=== PATIENT | female | born 1990 | race Caucasian/White ===

== ENCOUNTER → 2017-09-09 | Outpatient (CLI) | payer OTHER ==
[~2017-09-09] MED LIST: ACET325 PO; ALBU8HFA2 INH; ALBU90I INH; ALBU90OI INH; ALBU90OI6 INH; ALBU90OI61 INH; AMOX500 PO; ARIP15 PO; ATOM40 PO; AZIT250 PO; BENZ100A PO; CEFP200 PO; CEPH500 PO; CIPDEXSU LEFTEAR; CIPR500 PO; CYCL10 PO; DICL25ER PO; DOXY100 PO; FAMO40 PO; GABA300 PO; HYDACE5 PO; HYDACE5325 PO; HYDACE7.5 PO; IBUP800 PO; METPHE20 PO; MULVITMINE PO; NAPR500 PO; OXYC10TA19 PO; PENVK500 PO; PHENA200 PO; PRENATAL CAPLE1 EACH PO; PROM25 PO; PSEU120ER PO; Prednisone20 MG PO; Pulmicort Flex90 MCG IH; RXAMOX500 PO; RXOXYACE PO; SULTRIDS PO; SUMA25 PO; SYMBYAX PO; TRAM50 PO
[2017-09-09 17:54] LABS: U Amphetamine Screen Not Detected; U Barbituate Screen Not Detected; U Benzodiazapine Screen Not Detected; U Buprenorphine Screen Not Detected; U Cannabinoids Screen Not Detected; U Cocaine Screen Not Detected; U Methadone Screen Not Detected; U Methamphetamine Screen Not Detected; U Opiates Screen Not Detected; U Oxycodone Screen Not Detected; U Phencyclidine Screen Not Detected; U Propoxyphene Screen Not Detected
== END ==
LOC: LAB SHORT 14:51 → LAB 14:51
PROVIDERS: Obstetrics & Gynecology
DX: Z34.82 Encounter for supervision of other normal pregnancy, second trimester (principal); Z3A.17 17 weeks gestation of pregnancy; R30.0 Dysuria; Z86.14 Personal history of Methicillin resistant Staphylococcus aureus infection
CPT/HCPCS: 87077; 87081; 87086; 87186

== ENCOUNTER → 2017-10-08 | Outpatient (CLI) | payer OTHER ==
[2017-10-08 19:10] LABS: U Amphetamine Screen Not Detected; U Barbituate Screen Not Detected; U Benzodiazapine Screen Not Detected; U Buprenorphine Screen Not Detected; U Cannabinoids Screen Not Detected; U Cocaine Screen Not Detected; U Methadone Screen Not Detected; U Methamphetamine Screen Not Detected; U Opiates Screen Not Detected; U Oxycodone Screen Not Detected; U Phencyclidine Screen Not Detected; U Propoxyphene Screen Not Detected
== END | disposition home or self-care (01) ==
LOC: LAB SHORT 15:02 → LAB 15:02
PROVIDERS: Obstetrics & Gynecology
DX: Z34.82 Encounter for supervision of other normal pregnancy, second trimester (principal); Z3A.21 21 weeks gestation of pregnancy; Z86.14 Personal history of Methicillin resistant Staphylococcus aureus infection
CPT/HCPCS: 87081

== ENCOUNTER → 2017-12-16 | Outpatient (CLI) | payer OTHER ==
[~2017-12-16] MED LIST changes: -ALBU90OI6 INH
[2017-12-16 17:25] LABS: U Amphetamine Screen Not Detected; U Barbituate Screen Not Detected; U Benzodiazapine Screen Not Detected; U Buprenorphine Screen Not Detected; U Cannabinoids Screen Not Detected; U Cocaine Screen Not Detected; U Methadone Screen Not Detected; U Methamphetamine Screen Not Detected; U Opiates Screen Not Detected; U Oxycodone Screen Not Detected; U Phencyclidine Screen Not Detected; U Propoxyphene Screen Not Detected
== END ==
LOC: LAB 16:41 → LAB SHORT 16:41
PROVIDERS: Obstetrics & Gynecology
DX: Z34.83 Encounter for supervision of other normal pregnancy, third trimester (principal); Z3A.31 31 weeks gestation of pregnancy

== ENCOUNTER 2018-01-28 14:25 | Observation (INO) | payer OTHER ==
[~2018-01-28] VITALS: Ht 162.6 cm; Wt 100.6 kg
[2018-01-28 19:15] LABS: U Amphetamine Screen Not Detected; U Barbituate Screen Not Detected; U Benzodiazapine Screen Not Detected; U Buprenorphine Screen Not Detected; U Cannabinoids Screen Not Detected; U Cocaine Screen Not Detected; U Methadone Screen Not Detected; U Methamphetamine Screen Not Detected; U Opiates Screen Not Detected; U Oxycodone Screen Not Detected; U Phencyclidine Screen Not Detected; U Propoxyphene Screen Not Detected
== END 2018-01-29 10:45 | disposition home or self-care (01) ==
LOC: BC 14:25 → OBS 14:25 → BC 14:29 → OBS 17:17 → BC 17:18
PROVIDERS: Obstetrics & Gynecology
DX: O36.5930 Maternal care for other known or suspected poor fetal growth, third trimester, not applicable or unspecified (principal); Z3A.34 34 weeks gestation of pregnancy; Z79.899 Other long term (current) drug therapy
CPT/HCPCS: 76815; 76819; 81003

== ENCOUNTER 2018-02-02 06:02 | Inpatient (IN) | payer OTHER ==
[~2018-02-02] VITALS: Ht 162.6 cm; Wt 100.6 kg
[2018-02-02 06:43] LABS: BASOPHILS ABSOLUTE AUTO 0.02 K/mm3 (0.00-0.23); BASOPHILS PERCENT AUTO 0 % (0-2); EOSINOPHILS ABSOLUTE AUTO 0.13 K/mm3 (0.00-0.68); EOSINOPHILS PERCENT AUTO 1 % (0-6); Hemoglobin 12.3 g/dL (11.5-16.0); IMMATURE GRAN ABSOLUTE AUTO 0.06 K/mm3 (0.00-0.10); IMMATURE GRAN PERCENT AUTO 1 % (0-1); LYMPHOCYTES ABSOLUTE AUTO 3.55 K/mm3 (0.84-5.20); LYMPHOCYTES PERCENT AUTO 32 % (21-46); MONOCYTES ABSOLUTE AUTO 0.58 K/mm3 (0.16-1.47); MONOCYTES PERCENT AUTO 5 % (4-13); Mean Corpuscular HGB 28.7 pg (26.0-34.0); Mean Corpuscular HGB Conc 34.2 g/dL (31.5-36.5); Mean Corpuscular Volume 84 fL (80-100); Mean Platelet Volume 10.2 fL (9.1-12.4); NEUTROPHILS ABSOLUTE AUTO 6.62 K/mm3 (1.96-9.15); NEUTROPHILS PERCENT AUTO 60 % (41-73); Platelet Count 236 K/mm3 (150-400); RDW Coefficient Variation 12.4 % (11.7-14.2); RDW Standard Deviation 37.1 fL (35.1-46.3); Red Blood Cell Count 4.28 M/mm3 (3.80-5.20); White Blood Cell Count 10.96 K/mm3 (4.00-11.30)
[2018-02-02 06:56] LABS: U Amphetamine Screen Not Detected; U Barbituate Screen Not Detected; U Benzodiazapine Screen Not Detected; U Buprenorphine Screen Not Detected; U Cannabinoids Screen Not Detected; U Cocaine Screen Not Detected; U Methadone Screen Not Detected; U Methamphetamine Screen Not Detected; U Opiates Screen Not Detected; U Oxycodone Screen Not Detected; U Phencyclidine Screen Not Detected; U Propoxyphene Screen Not Detected
[2018-02-02] MEDS ORDERED: ALBU90OI6 INH (08:17)
[2018-02-03 05:10] LABS: BASOPHILS ABSOLUTE AUTO 0.02 K/mm3 (0.00-0.23); BASOPHILS PERCENT AUTO 0 % (0-2); EOSINOPHILS PERCENT AUTO 1 % (0-6); Hemoglobin 10.7 g/dL (11.5-16.0); IMMATURE GRAN ABSOLUTE AUTO 0.04 K/mm3 (0.00-0.10); IMMATURE GRAN PERCENT AUTO 0 % (0-1); LYMPHOCYTES ABSOLUTE AUTO 2.79 K/mm3 (0.84-5.20); LYMPHOCYTES PERCENT AUTO 26 % (21-46); MONOCYTES ABSOLUTE AUTO 0.53 K/mm3 (0.16-1.47); MONOCYTES PERCENT AUTO 5 % (4-13); Mean Corpuscular HGB 28.8 pg (26.0-34.0); Mean Corpuscular HGB Conc 33.4 g/dL (31.5-36.5); Mean Corpuscular Volume 86 fL (80-100); Mean Platelet Volume 10.2 fL (9.1-12.4); NEUTROPHILS ABSOLUTE AUTO 7.08 K/mm3 (1.96-9.15); NEUTROPHILS PERCENT AUTO 67 % (41-73); Platelet Count 182 K/mm3 (150-400); RDW Coefficient Variation 12.2 % (11.7-14.2); RDW Standard Deviation 38.4 fL (35.1-46.3); Red Blood Cell Count 3.71 M/mm3 (3.80-5.20); White Blood Cell Count 10.56 K/mm3 (4.00-11.30)
[2018-02-03] MEDS ORDERED: IBUP800 PO (16:49)
== END 2018-02-03 18:30 | disposition home or self-care (01) | DRG 767 ==
LOC: BC 06:02
PROVIDERS: Obstetrics & Gynecology
PROC: 10E0XZZ Delivery of Products of Conception, External Approach (ICD-10-PCS; principal; 2018-02-02)
PROC: 10D17Z9 Manual Extraction of Products of Conception, Retained, Via Natural or Artificial Opening (ICD-10-PCS; 2018-02-02)
PROC: 3E0S3BZ Introduction of Anesthetic Agent into Epidural Space, Percutaneous Approach (ICD-10-PCS; 2018-02-02)
PROC: 10907ZC Drainage of Amniotic Fluid, Therapeutic from Products of Conception, Via Natural or Artificial Opening (ICD-10-PCS; 2018-02-02)
DX: O36.5930 Maternal care for other known or suspected poor fetal growth, third trimester, not applicable or unspecified (principal); O98.42 Viral hepatitis complicating childbirth; Z37.0 Single live birth; O99.52 Diseases of the respiratory system complicating childbirth; J45.909 Unspecified asthma, uncomplicated; K21.9 Gastro-esophageal reflux disease without esophagitis; O99.62 Diseases of the digestive system complicating childbirth; F90.9 Attention-deficit hyperactivity disorder, unspecified type; O99.344 Other mental disorders complicating childbirth; F41.9 Anxiety disorder, unspecified; B19.20 Unspecified viral hepatitis C without hepatic coma; O99.334 Smoking (tobacco) complicating childbirth; F17.210 Nicotine dependence, cigarettes, uncomplicated; O69.89X0 Labor and delivery complicated by other cord complications, not applicable or unspecified; Z3A.38 38 weeks gestation of pregnancy
CPT/HCPCS: 36415; 51702; 85025; J1885; J2210; J2590; J3010; J7120

== ENCOUNTER → 2018-04-22 | Outpatient (CLI) | payer OTHER ==
[~2018-04-22] MED LIST changes: +ALBU90OI6 INH
== END | disposition home or self-care (01) ==
LOC: LAB 16:41 → LAB SHORT 16:41
DX: R30.0 Dysuria (principal)
CPT/HCPCS: 87077; 87086; 87186

== ENCOUNTER → 2019-06-08 | Outpatient (CLI) | payer OTHER ==
[2019-06-08 15:02] LABS: Progesterone 14.6 ng/mL
== END | disposition home or self-care (01) ==
LOC: LAB SHORT 10:44 → LAB UCHC 10:44
PROVIDERS: Obstetrics & Gynecology
DX: Z32.01 Encounter for pregnancy test, result positive (principal)
CPT/HCPCS: 36415; 84144; 84702

== ENCOUNTER → 2019-07-20 | Outpatient (CLI) | payer OTHER | END | disposition home or self-care (01) | LOC: LAB SHORT 12:26 → LAB 12:26 | DX: R30.0 Dysuria (principal) | CPT/HCPCS: 87086 ==

== ENCOUNTER → 2019-12-15 | Outpatient (CLI) | payer OTHER ==
[2019-12-17 01:09] LABS: CHLAMYDIA TRACHOMATIS, NAA Negative (Negative); NEISSERIA GONORRHOEAE, NAA Negative (Negative)
== END | disposition home or self-care (01) ==
LOC: LAB 16:02 → LAB SHORT 16:02
PROVIDERS: Obstetrics & Gynecology
DX: O99.89 Other specified diseases and conditions complicating pregnancy, childbirth and the puerperium (principal); R30.0 Dysuria; Z3A.36 36 weeks gestation of pregnancy
CPT/HCPCS: 87077; 87081; 87086; 87186; 87491; 87591; 87653

== ENCOUNTER 2020-01-10 05:57 | Inpatient (IN) | payer OTHER ==
[~2020-01-10] VITALS: Ht 162.6 cm; Wt 95.5 kg
[2020-01-10 06:53] LABS: Hematocrit 33.1 % (33.0-51.0); Hemoglobin 10.6 g/dL (11.5-16.0); Mean Corpuscular HGB 26.2 pg (26.0-34.0); Mean Corpuscular Volume 82 fL (80-100); Mean Platelet Volume 9.8 fL (9.1-12.4); Platelet Count 314 K/mm3 (150-400); RDW Coefficient Variation 13.6 % (11.7-14.2); RDW Standard Deviation 40.7 fL (35.1-46.3); Red Blood Cell Count 4.04 M/mm3 (3.80-5.20); White Blood Cell Count 13.71 K/mm3 (4.00-11.30)
[2020-01-10 07:12] LABS: U Amphetamine Screen Not Detected; U Barbituate Screen Not Detected; U Benzodiazapine Screen Not Detected; U Buprenorphine Screen Not Detected; U Cannabinoids Screen Not Detected; U Cocaine Screen Not Detected; U Methadone Screen Not Detected; U Methamphetamine Screen Not Detected; U Opiates Screen Not Detected; U Oxycodone Screen Not Detected; U Phencyclidine Screen Not Detected; U Propoxyphene Screen Not Detected
[2020-01-10 07:27] LABS: BASOPHILS ABSOLUTE MAN 0.13 K/mm3 (0.00-0.23); BASOPHILS PERCENT MAN 1 % (0-2); EOSINOPHILS ABSOLUTE MAN 0.27 K/mm3 (0.00-0.68); EOSINOPHILS PERCENT MAN 2 % (0-6); LYMPHOCYTES ABSOLUTE MAN 4.66 K/mm3 (0.84-5.20); LYMPHOCYTES PERCENT MAN 34 % (21-46); MONOCYTES ABSOLUTE MAN 0.41 K/mm3 (0.16-1.47); MONOCYTES PERCENT MAN 3 % (4-13); MYELOCYTE ABSOLUTE MAN 0.13 K/mm3 (0.00-0.00); MYELOCYTE PERCENT MAN 1 % (0-0); NEUTROPHILS ABSOLUTE MAN 8.08 K/mm3 (1.96-9.15); SEG NEUTROPHILS PERCENT MAN 59 % (41-73); TOTAL CELLS COUNTED 100
--- NOTE | 2020-01-10 21:53 | NUR ---
2150-PT C/O BACK PAIN FROM EPIDURAL. PT GIVEN STACEY HEATING PAD AT THIS TIME. WILL CONTINUE TO MONITOR.
[2020-01-11 05:36] LABS: Hematocrit 34.2 % (33.0-51.0); Mean Corpuscular HGB 26.4 pg (26.0-34.0); Mean Corpuscular HGB Conc 32.2 g/dL (31.5-36.5); Mean Corpuscular Volume 82 fL (80-100); Mean Platelet Volume 9.7 fL (9.1-12.4); Platelet Count 316 K/mm3 (150-400); RDW Coefficient Variation 13.6 % (11.7-14.2); RDW Standard Deviation 40.8 fL (35.1-46.3); Red Blood Cell Count 4.16 M/mm3 (3.80-5.20); White Blood Cell Count 16.42 K/mm3 (4.00-11.30)
[2020-01-11 06:03] LABS: BAND PERCENT MAN 1 % (0-8); BASOPHILS PERCENT MAN 0 % (0-2); EOSINOPHILS ABSOLUTE MAN 0.16 K/mm3 (0.00-0.68); EOSINOPHILS PERCENT MAN 1 % (0-6); LYMPHOCYTES ABSOLUTE MAN 4.59 K/mm3 (0.84-5.20); LYMPHOCYTES PERCENT MAN 28 % (21-46); MONOCYTES ABSOLUTE MAN 1.31 K/mm3 (0.16-1.47); MONOCYTES PERCENT MAN 8 % (4-13); NEUTROPHILS ABSOLUTE MAN 10.34 K/mm3 (1.96-9.15); SEG NEUTROPHILS PERCENT MAN 62 % (41-73); TOTAL CELLS COUNTED 100
--- NOTE | 2020-01-11 12:57 | NUR ---
PT ASSOCIATED WITH A PORTAL ALREADY
--- NOTE | 2020-01-11 13:53 | NUR ---
DISCHARGE TEACHING TEACHING COMPLETED, NO FURTHER QUESTIONS OR CONCERNS AT THIS TIME
--- NOTE | 2020-01-11 15:10 | NUR ---
DISCHARGE PATIENT DISCHARGED TO HOME AT 1510
== END 2020-01-11 15:10 | disposition home or self-care (01) | DRG 807 ==
LOC: OBS 05:57 → BC 05:58 → OBS 06:03 → BC 06:04
PROVIDERS: ADMIT Obstetrics & Gynecology
PROC: 3E033VJ Introduction of Other Hormone into Peripheral Vein, Percutaneous Approach (ICD-10-PCS; principal; 2020-01-10)
PROC: 10E0XZZ Delivery of Products of Conception, External Approach (ICD-10-PCS; 2020-01-10)
DX: O99.52 Diseases of the respiratory system complicating childbirth (principal); Z37.0 Single live birth; J45.909 Unspecified asthma, uncomplicated; O99.334 Smoking (tobacco) complicating childbirth; Z3A.39 39 weeks gestation of pregnancy; F17.210 Nicotine dependence, cigarettes, uncomplicated
CPT/HCPCS: 36415; 51702; 85025; 86850; 86900; 86901; A9270; J1885; J2001; J2590; J3010; J7120

== ENCOUNTER 2020-11-15 00:41 | Day surgery (SDC) | payer OTHER | END 2020-11-15 09:20 | disposition home or self-care (01) | LOC: ATC 00:41 | DX: O98.813 Other maternal infectious and parasitic diseases complicating pregnancy, third trimester (principal); A49.8 Other bacterial infections of unspecified site; O99.513 Diseases of the respiratory system complicating pregnancy, third trimester; J45.909 Unspecified asthma, uncomplicated; R82.90 Unspecified abnormal findings in urine; O98.413 Viral hepatitis complicating pregnancy, third trimester; B19.20 Unspecified viral hepatitis C without hepatic coma; O99.333 Smoking (tobacco) complicating pregnancy, third trimester; F17.200 Nicotine dependence, unspecified, uncomplicated; O09.43 Supervision of pregnancy with grand multiparity, third trimester; Z3A.28 28 weeks gestation of pregnancy; Z88.5 Allergy status to narcotic agent; Z88.1 Allergy status to other antibiotic agents | CPT/HCPCS: 96372; J1335; J2001 ==

== ENCOUNTER 2020-11-16 00:05 | Day surgery (SDC) | payer OTHER | END 2020-11-16 09:14 | disposition home or self-care (01) | LOC: ATC 00:05 | DX: O98.812 Other maternal infectious and parasitic diseases complicating pregnancy, second trimester (principal); A49.8 Other bacterial infections of unspecified site; O98.412 Viral hepatitis complicating pregnancy, second trimester; B19.20 Unspecified viral hepatitis C without hepatic coma; O99.512 Diseases of the respiratory system complicating pregnancy, second trimester; J45.909 Unspecified asthma, uncomplicated; O99.332 Smoking (tobacco) complicating pregnancy, second trimester; F17.200 Nicotine dependence, unspecified, uncomplicated; Z88.1 Allergy status to other antibiotic agents; Z88.5 Allergy status to narcotic agent; Z3A.28 28 weeks gestation of pregnancy | CPT/HCPCS: 96372; J1335; J2001 ==

== ENCOUNTER 2020-11-17 00:20 | Day surgery (SDC) | payer OTHER | END 2020-11-17 09:18 | disposition home or self-care (01) | LOC: ATC 00:20 | DX: O98.813 Other maternal infectious and parasitic diseases complicating pregnancy, third trimester (principal); B96.20 Unspecified Escherichia coli [E. coli] as the cause of diseases classified elsewhere; O98.413 Viral hepatitis complicating pregnancy, third trimester; B19.20 Unspecified viral hepatitis C without hepatic coma; O99.333 Smoking (tobacco) complicating pregnancy, third trimester; F17.210 Nicotine dependence, cigarettes, uncomplicated; O99.513 Diseases of the respiratory system complicating pregnancy, third trimester; J45.909 Unspecified asthma, uncomplicated; Z3A.28 28 weeks gestation of pregnancy; Z88.1 Allergy status to other antibiotic agents; Z88.6 Allergy status to analgesic agent | CPT/HCPCS: 96372; J1335; J2001 ==

== ENCOUNTER 2020-11-18 08:45 | Day surgery (SDC) | payer OTHER | END 2020-11-18 08:58 | disposition home or self-care (01) | LOC: ATC 08:45 | DX: O98.813 Other maternal infectious and parasitic diseases complicating pregnancy, third trimester (principal); A49.8 Other bacterial infections of unspecified site; O99.513 Diseases of the respiratory system complicating pregnancy, third trimester; J45.909 Unspecified asthma, uncomplicated; O98.413 Viral hepatitis complicating pregnancy, third trimester; B19.20 Unspecified viral hepatitis C without hepatic coma; O99.333 Smoking (tobacco) complicating pregnancy, third trimester; F17.200 Nicotine dependence, unspecified, uncomplicated; O09.43 Supervision of pregnancy with grand multiparity, third trimester; Z3A.28 28 weeks gestation of pregnancy; Z88.1 Allergy status to other antibiotic agents; Z88.5 Allergy status to narcotic agent | CPT/HCPCS: 96372; J1335; J2001 ==

== ENCOUNTER → 2020-11-20 | Outpatient (CLI) | payer OTHER ==
[~2020-11-20] MED LIST changes: +PRENATAL TABLE1 EAC2 PO; +SERT25 PO
== END | disposition home or self-care (01) ==
LOC: LAB 14:18 → LAB SHORT 14:18
DX: O09.93 Supervision of high risk pregnancy, unspecified, third trimester (principal); Z16.20 Resistance to unspecified antibiotic
CPT/HCPCS: 87081; 87086

== ENCOUNTER → 2021-01-11 | Outpatient (CLI) | payer OTHER | END | disposition home or self-care (01) | LOC: LAB SHORT 09:12 → LAB 09:12 | DX: O09.93 Supervision of high risk pregnancy, unspecified, third trimester (principal) | CPT/HCPCS: 87081; 87150 ==

== ENCOUNTER 2021-01-18 05:10 | Inpatient (IN) | payer OTHER ==
[~2021-01-18] VITALS: Ht 162.6 cm; Wt 92.0 kg
[~2021-01-18 05:10] MED LIST changes: -PRENATAL TABLE1 EAC2 PO; -SERT25 PO
[2021-01-18] MEDS ORDERED: PRENATAL TABLE1 EAC2 PO (05:36)
[2021-01-18] MEDS ORDERED: SERT25 PO (05:37)
[2021-01-18 06:00] LABS: BASOPHILS ABSOLUTE AUTO 0.04 K/mm3 (0.00-0.23); BASOPHILS PERCENT AUTO 0 % (0-2); EOSINOPHILS ABSOLUTE AUTO 0.22 K/mm3 (0.00-0.68); EOSINOPHILS PERCENT AUTO 2 % (0-6); Hematocrit 31.3 % (33.0-51.0); Hemoglobin 10.1 g/dL (11.5-16.0); Mean Corpuscular HGB 23.8 pg (26.0-34.0); Mean Corpuscular HGB Conc 32.3 g/dL (31.5-36.5); Mean Corpuscular Volume 74 fL (80-100); Mean Platelet Volume 9.4 fL (9.1-12.4); Platelet Count 376 K/mm3 (150-400); RDW Coefficient Variation 14.9 % (11.7-14.2); RDW Standard Deviation 39.6 fL (35.1-46.3); Red Blood Cell Count 4.25 M/mm3 (3.80-5.20); White Blood Cell Count 13.44 K/mm3 (4.00-11.30)
[2021-01-18 06:01] LABS: IMMATURE GRAN ABSOLUTE AUTO 0.08 K/mm3 (0.00-0.10); IMMATURE GRAN PERCENT AUTO 1 % (0-1); LYMPHOCYTES ABSOLUTE AUTO 4.31 K/mm3 (0.84-5.20); LYMPHOCYTES PERCENT AUTO 32 % (21-46); MONOCYTES ABSOLUTE AUTO 0.82 K/mm3 (0.16-1.47); MONOCYTES PERCENT AUTO 6 % (4-13); NEUTROPHILS ABSOLUTE AUTO 7.97 K/mm3 (1.96-9.15); NEUTROPHILS PERCENT AUTO 59 % (41-73)
[2021-01-18 06:08] LABS: U Amphetamine Screen Not Detected; U Barbituate Screen Not Detected; U Benzodiazapine Screen Not Detected; U Buprenorphine Screen Not Detected; U Cannabinoids Screen Not Detected; U Cocaine Screen Not Detected; U Methadone Screen Not Detected; U Methamphetamine Screen Not Detected; U Opiates Screen Not Detected; U Oxycodone Screen Not Detected; U Phencyclidine Screen Not Detected; U Propoxyphene Screen Not Detected
--- NOTE | 2021-01-18 11:39 | NUR ---
PIT 999CC/HR 380 WEIGHT FOR FUNDAL MASSATE AT 1135 METHERGINE GIVEN IM
--- NOTE | 2021-01-18 13:25 | NUR ---
PT GOING OUTSIDE TO SMOKE, UP AMB IN ROOM REPORTS DOING WELL, ABLE TO AMBULATE IN ROOM WITH STEADY GAIT, PT IS AWARE NON SMOKING CAMPUS AND NO SMOKING SHE IS TILL GOING OUTSIDE TO SMOKE, TAMPER TAPE TO BOTH HUBS OF IV LOCKS.
--- NOTE | 2021-01-18 13:45 | NUR ---
mom back from outside
--- NOTE | 2021-01-18 21:27 | NUR ---
IV LINE FLUSHED WITH 10ML NS, DRESSING CDI, TAMPER RESTANT TAPE AND HUBS REPLACES AND WRAPPED IN COBAN AT 2100.
[2021-01-19 05:50] LABS: Hematocrit 31.2 % (33.0-51.0); Hemoglobin 9.9 g/dL (11.5-16.0); Mean Corpuscular HGB 23.6 pg (26.0-34.0); Mean Corpuscular HGB Conc 31.7 g/dL (31.5-36.5); Mean Corpuscular Volume 74 fL (80-100); Mean Platelet Volume 9.4 fL (9.1-12.4); Platelet Count 378 K/mm3 (150-400); RDW Standard Deviation 40.4 fL (35.1-46.3); White Blood Cell Count 13.98 K/mm3 (4.00-11.30)
--- NOTE | 2021-01-19 13:35 | NUR ---
Patient up to Ambulate independently. Gait steady. History, Chart, Medications and Allergies reviewed before start of procedure.Patient confirms NPO status and agrees with scheduled surgery. GAVE ALBUTEROL NEBULIZER, LUNGS WITHOUT WHEEZES AT THIS TIME. ALL BELONINGS LEFT IN ROOM.
--- NOTE | 2021-01-19 15:00 | NUR ---
ASSUMED PT CARE, PT ON HER WAY DOWN FROM PACU.
--- NOTE | 2021-01-19 16:30 | NUR ---
PT SHAKING HER LEG TRYING TO MAKE IT LESS TINGLY. RN LETS PT KNOW IT JUST TAKES TIME, AND THE SHAKING WILL ONLY MAKE HER PAIN WORSE. PT VERY ANXIOUS, TEARFUL TO GET HOME. EXPLAINED SOON SHE CAN VOID AND WALK, PROABLY WITHIN THE NEXT HOUR SHE WILL BE ABLE TO LEAVE. HER HAS OTHER CHILDREN AT HOME AND SE IS ANXIOUS TO GET THERE. PT'S SO ARRIVED, SEEMED TO HELP WITH ANXIETY. PT IS ALSO A HEAVY SMOKER AND WANTS TO SMOKE.
--- NOTE | 2021-01-19 17:30 | NUR ---
PT OUT TO SMOKE IN WHEELCHAIR, AND DROP OFF BELONGINGS WITH SO. ALL DC TEACHING DONE, ALL QUESTIONS ANSWERED. HUGS REMOVED AND MATCHED TO MOM.
== END 2021-01-19 17:29 | disposition home or self-care (01) | DRG 797 ==
LOC: OBS 05:10 → BC 05:12 → OBS 05:17 → BC 05:18
PROVIDERS: ADMIT Obstetrics & Gynecology
PROC: 10E0XZZ Delivery of Products of Conception, External Approach (ICD-10-PCS; principal; 2021-01-18)
PROC: 3E0R3BZ Introduction of Anesthetic Agent into Spinal Canal, Percutaneous Approach (ICD-10-PCS; 2021-01-18)
PROC: 00HU33Z Insertion of Infusion Device into Spinal Canal, Percutaneous Approach (ICD-10-PCS; 2021-01-18)
PROC: 10907ZC Drainage of Amniotic Fluid, Therapeutic from Products of Conception, Via Natural or Artificial Opening (ICD-10-PCS; 2021-01-18)
PROC: 0UB70ZZ Excision of Bilateral Fallopian Tubes, Open Approach (ICD-10-PCS; 2021-01-19)
DX: O98.42 Viral hepatitis complicating childbirth (principal); O99.324 Drug use complicating childbirth; Z37.0 Single live birth; Z3A.39 39 weeks gestation of pregnancy; Z20.822 Contact with and (suspected) exposure to COVID-19; Z30.2 Encounter for sterilization; O71.82 Other specified trauma to perineum and vulva; O99.344 Other mental disorders complicating childbirth; F32.9 Major depressive disorder, single episode, unspecified; O99.52 Diseases of the respiratory system complicating childbirth; F12.90 Cannabis use, unspecified, uncomplicated; F15.90 Other stimulant use, unspecified, uncomplicated; J45.909 Unspecified asthma, uncomplicated; B19.20 Unspecified viral hepatitis C without hepatic coma; F41.9 Anxiety disorder, unspecified; O99.334 Smoking (tobacco) complicating childbirth; F17.210 Nicotine dependence, cigarettes, uncomplicated; Z87.440 Personal history of urinary (tract) infections; Z90.49 Acquired absence of other specified parts of digestive tract; Z88.5 Allergy status to narcotic agent; Z88.8 Allergy status to other drugs, medicaments and biological substances
CPT/HCPCS: 36415; 51702; 85025; 85027; 86850; 86900; 86901; 87210; 88302; 99214; A9270; J1885; J2001; J2210; J2250; J2370; J2590; J2704; J3010; J7120; U0004

== ENCOUNTER → 2021-12-24 | Outpatient (CLI) | payer OTHER ==
[~2021-12-24] MED LIST changes: +PRENATAL TABLE1 EAC2 PO; +SERT25 PO
[2021-12-24 16:01] LABS: U Amphetamine Screen Not Detected; U Barbituate Screen Not Detected; U Benzodiazapine Screen Not Detected; U Buprenorphine Screen Not Detected; U Cannabinoids Screen Not Detected; U Cocaine Screen Not Detected; U Methadone Screen Not Detected; U Methamphetamine Screen Not Detected; U Opiates Screen Not Detected; U Oxycodone Screen Not Detected; U Phencyclidine Screen Not Detected; U Propoxyphene Screen Not Detected
== END | disposition home or self-care (01) ==
LOC: LAB SHORT 08:35 → LAB 08:35
PROVIDERS: Nurse Practitioner Psychiatric/Mental Health
DX: F31.81 Bipolar II disorder (principal)

== ENCOUNTER 2023-06-07 23:56 | Observation (INO) | payer OTHER ==
[~2023-06-07] VITALS: Ht 175.3 cm; Wt 78.1 kg
[2023-06-08] VITALS (17 sets, daily range): BP systolic 102–129; BP diastolic 68–92
[2023-06-08] MEDS ORDERED: METPHE5 (00:15)
[2023-06-08] MEDS ORDERED: VRAYLAR1.5 MG PO (00:15)
[2023-06-08 00:31] LABS: BASOPHILS ABSOLUTE AUTO 0.05 K/mm3 (0.00-0.23); BASOPHILS PERCENT AUTO 1 % (0-2); EOSINOPHILS ABSOLUTE AUTO 0.26 K/mm3 (0.00-0.68); EOSINOPHILS PERCENT AUTO 3 % (0-6); Hematocrit 41.2 % (33.0-51.0); IMMATURE GRAN ABSOLUTE AUTO 0.01 K/mm3 (0.00-0.10); IMMATURE GRAN PERCENT AUTO 0 % (0-1); LYMPHOCYTES ABSOLUTE AUTO 3.98 K/mm3 (0.84-5.20); LYMPHOCYTES PERCENT AUTO 42 % (21-46); MONOCYTES ABSOLUTE AUTO 0.49 K/mm3 (0.16-1.47); MONOCYTES PERCENT AUTO 5 % (4-13); Mean Corpuscular HGB 27.3 pg (26.0-34.0); Mean Corpuscular Volume 81 fL (80-100); Mean Platelet Volume 9.5 fL (9.1-12.4); NEUTROPHILS ABSOLUTE AUTO 4.68 K/mm3 (1.96-9.15); NEUTROPHILS PERCENT AUTO 50 % (41-73); Platelet Count 329 K/mm3 (150-400); RDW Coefficient Variation 13.2 % (11.7-14.2); RDW Standard Deviation 38.5 fL (35.1-46.3); Red Blood Cell Count 5.12 M/mm3 (3.80-5.20); White Blood Cell Count 9.47 K/mm3 (4.00-11.30)
[2023-06-08 00:47] LABS: Albumin, Blood 3.7 g/dL (3.4-5.0); Albumin/Globulin Ratio 1.1 (0.8-1.8); Bilirubin, Total 0.4 mg/dL (0.1-1.0); Bun/Creatinine Ratio 15.8 (12.0-20.0); Calcium, Blood 8.7 mg/dL (8.5-10.1); Creatinine, Blood 0.82 mg/dL (0.40-1.00); Globulin, Blood 3.5 g/dL (2.2-4.0); Potassium, Blood 3.8 mmol/L (3.5-5.5); Total Protein, Blood 7.2 g/dL (6.4-8.2)
[2023-06-08 01:33] LABS: Ethanol (Alcohol), Blood, Med <3 mg/dL; Salicylate 3.3 mg/dL (2.8-20.0); Thyroid Stimulating Hormone 0.988 uIU/mL (0.360-4.800); Thyroxine (T4) 11.9 ug/dL (4.8-13.9)
[2023-06-08 01:40] LABS: Acetaminophen, Random <2.0 ug/mL (10.0-30.0)
[2023-06-08 01:40] LABS: Influenza A, PCR NEGATIVE (NEGATIVE); Influenza B, PCR NEGATIVE (NEGATIVE); Resp Syncytial Virus, PCR NEGATIVE (NEGATIVE); SARS-Cov-2 (COVID-19) PCR, MMC NEGATIVE (NEGATIVE)
--- NOTE | 2023-06-08 05:11 | NUR ---
ASSUMED CARE OF PT AT 0315 PT TO RM 15 FROM ER AT THIS TIME. PT LETHARGIC AND SLEEPY UPON ARRIVAL. SPEAKS IN FULL SENTENCES. PT CHOSE TO NOT SIGN CIVIL RIGHTS PAPERWORK IN ER. PT OFFERED TO SIGN IN ICU AT THIS TIME, WITH ANOTHER REFUSAL. 2 MD HOLD AT THIS TIME. ROOM MITAGATION DONE. 1:1 SITTER AT DOOR. VITALS WNL. CLOTHING THAT CAME WITH PT IS LOCKED IN CABINET. PT NOT INTERESTED IN ANSWERING QUESTIONS AT THIS TIME. ED NURSE NOTE CONTAINS INFORMATION ON OD MEDICATION VRAYLAR. POISON CONTROL RECOMMENDING 8 HOUR OBS FOR CRYSTAL REPORT DEVELOPER DEPRESSION, GI ISSUES, RESTLESSNESS, AND THROMBOCYTOPENIA. ASYMPTOMATIC AT THIS TIME.
--- NOTE | 2023-06-08 06:35 | NUR ---
END OF SHIFT SUMMARY PT A/O X4. AGITATED WITH ANY QUESTIONS ASKED AND IS VERY SHORT WITH CONVERSATIONS. VITALS WNL AND CONTINUES TO BE ASYMPTOMATIC. 1:1 SITTER AT DOOR FOR CONTINUOUSE MONITORING. WILL CONTINUE TO MONITOR UNTIL REPORT GIVEN TO AM RN.
--- NOTE | 2023-06-08 08:54 | NUR ---
CARE OF PT ASSUMED AT 0700. PT SLEEPING, AWAKENS TO VOICE. PT RELUCTANT TO ANSWER QUESTIONS REGARDING S.I. OR THE SITUATION THAT BROUGHT HER IN. PT WITH SOME DEFENSIVE COMMUNICATION; "I JUST SPOKE WITH THE DOCTOR, WHY DO I NEED TO TELL YOU ANYTHING". PT INFORMED THAT SHE IS NOT REQUIRED TO ANSWER QUESTIONS, BUT WE ARE ASKING BECAUSE WE CARE AND WANT TO KEEP HER SAFE; OPEN COMMUNICATION HELPS THE CARE TEAM CARE FOR HER. PT IS HUNGRY, BREAKFAST ORDERED. DR TOURE AND DR ARANA IN TO SEE PT; UPDATE GIVEN. PSYCH CONSULT ORDERED. 1:1 SITTER AT BEDSIDE.
--- NOTE | 2023-06-08 11:01 | NUR ---
BREAKFAST BROUGHT TO PT, PT INITIALLY WOULD NOT ENGAGE IN CONVERSATION, KEEPING EYES CLOSE. IT WAS EXPLAINED TO PT THAT BOTH A REP FROM [facility] AND THE PSYCHIATRIST WOULD BE EVALUATING HER, AND THAT PARTICIPATING IN CARE MAY BE BENEFICIAL TO HER. PT THEN OPENED HER EYES AND STATED SHE WASNT HUNGRY AND THAT I COULD TAKE HER TRAY AWAY. [facility] COUNSELOR IN TO SEE PT, PT PARTICIPATED IN CONVERSTAION. SHORTLY AFTER DR RONNIE Grady PSYCH WAS IN TO SEE PT, PT ALSO PARTICIPATED IN THAT CONVERSATION. NO PLANS TO SEND PT HOME TODAY, PT REMAINS ON HOLD W 1:[address] TRUJILLO STATED HE WOULD BE BACK LATER TO FURTHER EVALUATE PT.
[2023-06-08 13:34] LABS: BASOPHILS ABSOLUTE AUTO 0.03 K/mm3 (0.00-0.23); BASOPHILS PERCENT AUTO 0 % (0-2); EOSINOPHILS ABSOLUTE AUTO 0.25 K/mm3 (0.00-0.68); EOSINOPHILS PERCENT AUTO 4 % (0-6); Hematocrit 42.5 % (33.0-51.0); Hemoglobin 13.9 g/dL (11.5-16.0); IMMATURE GRAN ABSOLUTE AUTO 0.01 K/mm3 (0.00-0.10); IMMATURE GRAN PERCENT AUTO 0 % (0-1); LYMPHOCYTES ABSOLUTE AUTO 2.41 K/mm3 (0.84-5.20); LYMPHOCYTES PERCENT AUTO 36 % (21-46); MONOCYTES ABSOLUTE AUTO 0.31 K/mm3 (0.16-1.47); MONOCYTES PERCENT AUTO 5 % (4-13); Mean Corpuscular HGB 27.5 pg (26.0-34.0); Mean Corpuscular HGB Conc 32.7 g/dL (31.5-36.5); Mean Corpuscular Volume 84 fL (80-100); Mean Platelet Volume 9.3 fL (9.1-12.4); NEUTROPHILS ABSOLUTE AUTO 3.77 K/mm3 (1.96-9.15); NEUTROPHILS PERCENT AUTO 56 % (41-73); Platelet Count 270 K/mm3 (150-400); RDW Coefficient Variation 13.3 % (11.7-14.2); Red Blood Cell Count 5.06 M/mm3 (3.80-5.20); White Blood Cell Count 6.78 K/mm3 (4.00-11.30)
--- NOTE | 2023-06-08 13:34 | NUR ---
PT SLEEPING, AWAKENS, TO LIGHT SHAKE, OR NAME BEING SPOKEN LOUDLY. PT IRRITABLE WHEN AWOKEN. SPEECH IS ABRUPT AND BLUNT. PT INITIALLY DECLINED 1200 LABS, BUT AGREED TO THEM AT 1330. PT FALLS ASLEEP IN BETWEEN QUESTIONS. SBA TO BATHROOM EARLIER; STEADY ON FEET. PT ASKED FOR URINE SPECIUM, HAT LEFT IN TOILET. PT REMOVED HAT AND FLUSHED URINE. PT ATE 100% OF LUNCH W/O ISSUES.
[2023-06-08 14:03] LABS: Albumin, Blood 3.2 g/dL (3.4-5.0); Albumin/Globulin Ratio 0.9 (0.8-1.8); Bilirubin, Total 0.2 mg/dL (0.1-1.0); Bun/Creatinine Ratio 14.8 (12.0-20.0); Calcium, Blood 8.5 mg/dL (8.5-10.1); Creatinine, Blood 0.81 mg/dL (0.40-1.00); Globulin, Blood 3.4 g/dL (2.2-4.0); Total Protein, Blood 6.6 g/dL (6.4-8.2)
--- NOTE | 2023-06-08 14:22 | NUR ---
DR TOURE AND DR TRUJILLO UPDATED. PT NOW MED NO TELE STATUS. PT REMAINS DROWSY, FALLS ASLEEP IN BETWEEN QUESTIONS, REQUIRES A LOUD VOICE OR LIGHT SHAKE TO AWAKEN HER. DR TOURE WILL REASSESS PT LATER TODAY FOR POSSIBLE DISCHARGE HOME DEPENDING ON PSYCH.
--- NOTE | 2023-06-08 17:33 | NUR ---
DR TOURE IN TO SEE PT. PT AWAKE AND ALERT FOR . HOLD DROPPED, ORIGINAL SENT TO ER. PT TO BE DC'D HOME. SAFETY PLAN COMPLETED. VRAYLAR 1.5MG, 10TABS CALLED TO [facility]. PT PLANS TO FOLLOW UP W [facility] FOR COUNSELING, AND HAS A SCHEDULED APPT W PCP ON THE . PT'S DAUGHTER TO PICK PT UP, PT TO STAY W DAUGHTER. VERBAL AND WRITTEN DC INSTRUCTIONS GIVEN TO PT WITH CLEAR UNDERSTANDING.
--- NOTE | 2023-06-08 17:47 | NUR ---
PRESCRIPTION: VRAYLAR 1.5MG PO DAILY. START 06/10/23. QUANITY 10. NO REFILLS. T/O DR TOURE ON 06/08/23 AT 9023. MESSAGE LEFT WITH [facility].
--- NOTE | 2023-06-08 19:30 | NUR ---
DISCHARGE HOME NOTIFIED BY PT THAT HER DAUGHTER FABIANA WAS HERE TO PICK HER UP. V/S TAKEN AND ALL BELONGINGS GATHERED. PT DECLINED W/C. WALKED WITH THIS RN TO AWAITING VEHICLE. ENSURED PT GOT INTO VEHICLE SAFELY. ENSURED ALL IV'S HAD BEEN REMOVED. IT SOFTWARE DEVELOPER NOTIFIED OF D/C.
== END 2023-06-08 19:30 | disposition home or self-care (01) ==
LOC: ER 23:56 → PCU 23:57 → ICUE 23:57
PROVIDERS: Emergency Medicine; ADMIT Internal Medicine
DX: T43.592A Poisoning by other antipsychotics and neuroleptics, intentional self-harm, initial encounter (principal); J45.909 Unspecified asthma, uncomplicated; F31.9 Bipolar disorder, unspecified; F90.9 Attention-deficit hyperactivity disorder, unspecified type; F17.210 Nicotine dependence, cigarettes, uncomplicated; F43.25 Adjustment disorder with mixed disturbance of emotions and conduct; B19.20 Unspecified viral hepatitis C without hepatic coma; Z11.52 Encounter for screening for COVID-19
CPT/HCPCS: 0241U; 36415; 80053; 84436; 84443; 85025; 86592; 93005; 93010; 96372; 99285-25; G0378; G0480; J1650; J7030

== ENCOUNTER 2023-07-10 15:08 | Emergency (ER) | payer OTHER ==
[~2023-07-10] VITALS: Ht 162.6 cm; Wt 83.9 kg
[~2023-07-10 15:08] MED LIST changes: +METPHE5; +VRAYLAR1.5 MG PO
[2023-07-10 16:27] LABS: Source, Urine Clean Catch
[2023-07-10 16:34] LABS: Bilirubin, Urine Neg (Neg); Blood, Urine 2+ (Neg); Glucose Qualitative, Urine Neg (Neg); Ketones, Urine Neg (Neg); Leukocyte Esterase, Urine Neg (Neg); Nitrite, Urine Neg (Neg); Protein, Urine Neg (Neg); Specific Gravity, Urine 1.015 (1.003-1.022); Urobilinogen, Urine NORM (Normal)
[2023-07-10 16:54] LABS: BASOPHILS ABSOLUTE AUTO 0.06 K/mm3 (0.00-0.23); BASOPHILS PERCENT AUTO 1 % (0-2); EOSINOPHILS PERCENT AUTO 3 % (0-6); Hematocrit 38.6 % (33.0-51.0); Hemoglobin 12.9 g/dL (11.5-16.0); IMMATURE GRAN ABSOLUTE AUTO 0.06 K/mm3 (0.00-0.10); IMMATURE GRAN PERCENT AUTO 1 % (0-1); LYMPHOCYTES ABSOLUTE AUTO 2.77 K/mm3 (0.84-5.20); LYMPHOCYTES PERCENT AUTO 35 % (21-46); MONOCYTES ABSOLUTE AUTO 0.43 K/mm3 (0.16-1.47); MONOCYTES PERCENT AUTO 5 % (4-13); Mean Corpuscular HGB 27.6 pg (26.0-34.0); Mean Corpuscular HGB Conc 33.4 g/dL (31.5-36.5); Mean Corpuscular Volume 83 fL (80-100); NEUTROPHILS ABSOLUTE AUTO 4.37 K/mm3 (1.96-9.15); NEUTROPHILS PERCENT AUTO 55 % (41-73); RDW Coefficient Variation 12.9 % (11.7-14.2); RDW Standard Deviation 38.9 fL (35.1-46.3); Red Blood Cell Count 4.67 M/mm3 (3.80-5.20); White Blood Cell Count 7.89 K/mm3 (4.00-11.30)
[2023-07-10 16:57] LABS: Appearance, Urine Clear (Clear); Color, Urine Pale Yellow (P-Yellow)
[2023-07-10 16:59] LABS: Bacteria Many /hpf; Squamous Epithelial Cells Rare /hpf (Few)
[2023-07-10 17:02] LABS: Albumin, Blood 3.1 g/dL (3.4-5.0); Albumin/Globulin Ratio 0.9 (0.8-1.8); Bilirubin, Total 0.1 mg/dL (0.1-1.0); Bun/Creatinine Ratio 19.3 (12.0-20.0); Calcium, Blood 8.3 mg/dL (8.5-10.1); Creatinine, Blood 0.78 mg/dL (0.40-1.00); Globulin, Blood 3.4 g/dL (2.2-4.0); Total Protein, Blood 6.5 g/dL (6.4-8.2)
[2023-07-10 17:20] VITALS: BP 128/73
[2023-07-10] MEDS ORDERED: Keflex500 MG PO (17:22)
== END 2023-07-10 17:44 | disposition home or self-care (01) ==
LOC: ER 15:08
PROVIDERS: Emergency Medicine
DX: N39.0 Urinary tract infection, site not specified (principal); Z88.8 Allergy status to other drugs, medicaments and biological substances; Z88.5 Allergy status to narcotic agent; Z79.899 Other long term (current) drug therapy; F17.200 Nicotine dependence, unspecified, uncomplicated
CPT/HCPCS: 80053; 81001; 81025; 85025; 87077; 87086; 87186; 99283

== ENCOUNTER 2023-07-27 13:05 | Emergency (ER) | payer OTHER ==
[~2023-07-27] VITALS: Ht 162.6 cm; Wt 88.0 kg
[~2023-07-27 13:05] MED LIST changes: +Keflex500 MG PO
[2023-07-27 14:21] LABS: BASOPHILS ABSOLUTE AUTO 0.03 K/mm3 (0.00-0.23); BASOPHILS PERCENT AUTO 0 % (0-2); EOSINOPHILS ABSOLUTE AUTO 0.15 K/mm3 (0.00-0.68); EOSINOPHILS PERCENT AUTO 2 % (0-6); Hematocrit 41.3 % (33.0-51.0); Hemoglobin 13.4 g/dL (11.5-16.0); IMMATURE GRAN ABSOLUTE AUTO 0.04 K/mm3 (0.00-0.10); IMMATURE GRAN PERCENT AUTO 1 % (0-1); LYMPHOCYTES ABSOLUTE AUTO 2.71 K/mm3 (0.84-5.20); LYMPHOCYTES PERCENT AUTO 35 % (21-46); MONOCYTES ABSOLUTE AUTO 0.47 K/mm3 (0.16-1.47); MONOCYTES PERCENT AUTO 6 % (4-13); Mean Corpuscular HGB 27.4 pg (26.0-34.0); Mean Corpuscular HGB Conc 32.4 g/dL (31.5-36.5); Mean Corpuscular Volume 85 fL (80-100); Mean Platelet Volume 9.2 fL (9.1-12.4); NEUTROPHILS ABSOLUTE AUTO 4.28 K/mm3 (1.96-9.15); NEUTROPHILS PERCENT AUTO 56 % (41-73); Platelet Count 259 K/mm3 (150-400); RDW Coefficient Variation 13.2 % (11.7-14.2); RDW Standard Deviation 40.3 fL (35.1-46.3); Red Blood Cell Count 4.89 M/mm3 (3.80-5.20); White Blood Cell Count 7.68 K/mm3 (4.00-11.30)
[2023-07-27 14:25] LABS: Source, Urine Clean Catch
[2023-07-27 14:28] LABS: Appearance, Urine Hazy (Clear); Bilirubin, Urine Neg (Neg); Blood, Urine Neg (Neg); Glucose Qualitative, Urine Neg (Neg); Ketones, Urine Neg (Neg); Leukocyte Esterase, Urine 1+ (Neg); Nitrite, Urine Neg (Neg); Protein, Urine Neg (Neg); Specific Gravity, Urine 1.015 (1.003-1.022); Urobilinogen, Urine NORM (Normal)
[2023-07-27] MEDS ORDERED: Prozac20 MG PO (14:37)
[2023-07-27] MEDS ORDERED: Docusate Sodiu250 MG PO (14:37)
[2023-07-27] MEDS ORDERED: GUANFACINE HCL2 MG PO (14:37)
[2023-07-27 14:38] LABS: Color, Urine Pale Yellow (P-Yellow)
[2023-07-27] MEDS ORDERED: NARCAN4 M1 (14:38)
[2023-07-27 14:39] LABS: Bacteria Many /hpf; Mucus Light (0-Heavy); Red Blood Cells, Urine 0-2 /hpf (0-2); Squamous Epithelial Cells Many /hpf (Few); Transitional Epithelial Cells Rare /hpf (0-Rare)
[2023-07-27] MEDS ORDERED: METPHE10 PO (14:39)
[2023-07-27] MEDS ORDERED: METPHE27ER PO (14:40)
[2023-07-27 14:51] LABS: Beta HCG, Quantitative, Serum <1 mIU/mL (0-3)
[2023-07-27 14:52] LABS: Alanine Aminotransfer (ALT/SGP 79 U/L (12-78); Albumin, Blood 3.5 g/dL (3.4-5.0); Alk Phos 69 U/L (50-136); Anion Gap 4 mmol/L (6-16); Aspartate Aminotrans (AST/SGOT 45 U/L (12-37); Bilirubin, Total 0.4 mg/dL (0.1-1.0); Blood Urea Nitrogen 11 mg/dL (8-24); Bun/Creatinine Ratio 15.5 (12.0-20.0); CO2, Blood 25 mmol/L (21-32); Calcium, Blood 8.7 mg/dL (8.5-10.1); Chloride, Blood 109 mmol/L (98-108); Creatinine, Blood 0.71 mg/dL (0.40-1.00); Globulin, Blood 3.6 g/dL (2.2-4.0); Glomerular Filtration Rate 114 (60-); Glucose, Blood 97 mg/dL (70-99); Potassium, Blood 4.1 mmol/L (3.5-5.5); Sodium, Blood 138 mmol/L (136-145); Total Protein, Blood 7.1 g/dL (6.4-8.2)
[2023-07-27 15:48] VITALS: BP 110/68
== END 2023-07-27 16:01 | disposition home or self-care (01) ==
LOC: ER 13:05
PROVIDERS: Student in an Organized Health Care Education/Training Program
DX: R10.84 Generalized abdominal pain (principal); J45.909 Unspecified asthma, uncomplicated; F17.200 Nicotine dependence, unspecified, uncomplicated; Z90.49 Acquired absence of other specified parts of digestive tract; Z88.5 Allergy status to narcotic agent; Z88.1 Allergy status to other antibiotic agents; Z79.899 Other long term (current) drug therapy
CPT/HCPCS: 80053; 81001; 83690; 84702; 85025; 87086; 99284

== ENCOUNTER → 2023-12-10 | Outpatient (CLI) | payer OTHER | END | disposition home or self-care (01) | LOC: LAB SHORT 18:07 → LAB 18:07 | DX: R30.0 Dysuria (principal) ==

== ENCOUNTER → 2024-03-04 | Outpatient (CLI) | payer OTHER ==
[~2024-03-04] MED LIST changes: +Docusate Sodiu250 MG PO; +GUANFACINE HCL2 MG PO; +METPHE10 PO; +METPHE27ER PO; +NARCAN4 M1; +Prozac20 MG PO
[2024-03-11 09:58] LABS: HPV HIGH RISK BY TMA Not Detected; HPV SOURCE Cervical
== END | disposition home or self-care (01) ==
LOC: LAB SHORT 17:46 → LAB 17:46
PROVIDERS: Registered Nurse
DX: Z01.419 Encounter for gynecological examination (general) (routine) without abnormal findings (principal)
CPT/HCPCS: 87624; G0123

== ENCOUNTER → 2024-03-09 | Outpatient (CLI) | payer OTHER | LOC: LAB SHORT 11:56 → LAB 11:56 | DX: H10.9 Unspecified conjunctivitis (principal) | CPT/HCPCS: 87070; 87205 ==